=== PATIENT | male | born 1965 | race Caucasian/White ===

== ENCOUNTER 2020-12-05 07:59 | Emergency (ER) | payer OTHER ==
[~2020-12-05] VITALS: Ht 180.3 cm; Wt 99.8 kg
[2020-12-05] MEDS ORDERED: AMOXICILLIN875 MG PO (09:15)
[2020-12-05 09:56] VITALS: BP 144/103
== END 2020-12-05 09:56 | disposition home or self-care (01) ==
LOC: ER 07:59
DX: J02.8 Acute pharyngitis due to other specified organisms (principal); Z20.822 Contact with and (suspected) exposure to COVID-19; H61.23 Impacted cerumen, bilateral; H66.93 Otitis media, unspecified, bilateral; I11.0 Hypertensive heart disease with heart failure; I50.9 Heart failure, unspecified; E78.00 Pure hypercholesterolemia, unspecified